=== PATIENT | female | born 1990 | race Caucasian/White ===

== ENCOUNTER 2023-08-05 15:14 | Emergency (ER) | payer OTHER ==
[2023-08-05 18:45] LABS: Basophils % (A) 0 %; Eosinophils % (A) 0 %; HCT 47.6 % (34.0-46.0); HGB 15.5 gm/dL (11.4-16.0); Lymphocytes # (A) 1.9 k/uL (1.0-4.8); Lymphocytes % (A) 19 %; MCH 29.9 pg (25.0-35.0); MCHC 32.5 g/dL (31.0-37.0); Mean Platelet Volume 7.5; Monocytes # (A) 0.5 k/uL (0-1.0); Monocytes % (A) 5 %; Neutrophils # (A) 7.3 k/uL (1.3-7.7); Neutrophils % (A) 74 %; Platelet Count 278 k/uL (150-450); RBC 5.18 m/uL (3.80-5.40); WBC 9.9 k/uL (3.8-10.6)
[2023-08-05 18:48] LABS: Appearance,Urine Clear (Clear); Bilirubin,Urine Negative (Negative); Blood,Urine Negative (Negative); Color,Urine Dark Yellow; Glucose,Urine (UA) Negative (Negative); Ketones,Urine Negative (Negative); Leukocyte Esterase,Urine Negative (Negative); Nitrite,Urine Negative (Negative); PH, Urine 6.5 (5.0-8.0); Protein,Urine Negative (Negative); Specific Gravity,Urine 1.006 (1.001-1.035); Urobilinogen,Urine <2.0 mg/dL (<2.0)
[2023-08-05 18:54] LABS: ALT 18 U/L (4-34); AST 30 U/L (14-36); African American GFR (CKD) >90 (>60 ml/min/1.73 sqM); Albumin 5.4 g/dL (3.5-5.0); Alkaline Phosphatase 64 U/L (38-126); Amylase 74 U/L (30-110); Anion Gap 9 mmol/L; Blood Urea Nitrogen 14 mg/dL (7-17); Calcium 10.4 mg/dL (8.4-10.2); Carbon Dioxide 26 mmol/L (22-30); Chloride 102 mmol/L (98-107); Glucose 85 mg/dL (74-99); Lipase 253 U/L (23-300); Non-African American GFR(CKD) >90 (>60 ml/min/1.73 sqM); Potassium 3.9 mmol/L (3.5-5.1); Sodium 137 mmol/L (137-145); Total Bilirubin 1.2 mg/dL (0.2-1.3); Total Protein 8.3 g/dL (6.3-8.2)
[2023-08-05] MEDS: HYDROmorphone 0.5 MG/0.5 ML SYRINGE IVP STA (19:09)
--- NOTE | 2023-08-05 21:06 | CT ---
EXAMINATION TYPE: CT abdomen pelvis w con CT DLP: 723 mGycm, Automated exposure control for dose reduction was used. DATE OF EXAM: 08/05/2023 7:20 PM COMPARISON: None. CLINICAL INDICATION:Female, 32 years old with history of flank pain; UTI x 3 weeks, flank pain x 4 da ys TECHNIQUE: Axial CT of the abdomen and pelvis. Sagittal and coronal reformats were created on a [employer] workstation. Contrast used:100ml mL of Isovue 300 with IV Contrast, (none if empty) Oral contrast used: without Oral Contrast (none if empty) FINDINGS: LOWER CHEST: Unremarkable ABDOMEN LIVER: A few vague small scattered hypodensities without definite fill-in on delayed images, nonspeci fic but likely benign in absence of a cancer history. If of concern MRI GALLBLADDER AND BILE DUCTS: Unremarkable gallbladder. No biliary ductal dilatation. PANCREAS: Unremarkable. SPLEEN: Unremarkable. ADRENAL GLANDS: Unremarkable. KIDNEYS AND URETERS: Kidneys enhance symmetrically. No evidence of hydronephrosis or visible renal ca lculus. The ureters are unremarkable. PELVIS BLADDER: Incompletely distended but grossly unremarkable. REPRODUCTIVE: Not well assessed by CT. Mildly prominent central uterine low-attenuation likely normal for patient age. Bilaterally prominent ovaries with low attenuation nodules likely representing foll icular changes. If of concern, ultrasound ABDOMEN & PELVIS STOMACH AND BOWEL: Stomach and small bowel are nondistended, no evidence of obstruction. The append ix is not seen with certainty but there is no inflammatory process seen in the pericecal region. The re is a moderate amount of stool and some gas seen throughout the colon with no focal acute abnormali ty shown; correlate for constipation. PERITONEUM/RETROPERITONEUM: No evidence of pneumoperitoneum or free fluid. VASCULATURE: Aorta and major branches are grossly unremarkable. No AAA. Portal veins are enhancing. Splenic vein and SMV patent. LYMPH NODES: No enlarged nodes by CT size criteria. SOFT TISSUE/ABDOMINAL WALL: Unremarkable MUSCULOSKELETAL: No acute osseous abnormalities. There is a mild pectus excavatum deformity partiall y seen. Mild apex right curvature of the lumbar spine. IMPRESSION: No acute inflammatory or obstructive abnormality in the abdomen or pelvis.
[2023-08-05 23:45] VITALS: BP 130/87; PULSE 75; RESP 18; TEMP 97.7
== END 2023-08-05 22:15 | disposition home or self-care (01) ==
LOC: EC 15:14
DX: N39.0 Urinary tract infection, site not specified (principal)
CPT/HCPCS: 36415; 80053; 82150; 83605; 83690; 85025; 81003; 81025; 74177; 99284; 96374; 96375; Q9967

== ENCOUNTER 2023-09-21 19:30 | Emergency (ER) | payer OTHER ==
[2023-09-21] MEDS ORDERED: LORazepam 1 MG TAB ONE (22:00)
== END 2023-09-21 22:04 | disposition home or self-care (01) ==
LOC: EC 19:30
DX: R45.851 Suicidal ideations (principal)
CPT/HCPCS: 82075; 99284